=== PATIENT | female | born 1930 | race Caucasian/White ===

== ENCOUNTER → 2016-11-22 | Outpatient (CLI) | payer MEDICARE ==
--- NOTE | 2016-11-22 18:51 | Diagnostic Imaging Report ---
PROCEDURE: MRI lumbar spine. TECHNIQUE: Multiplanar, multisequence MRI of the lumbar spine was performed without contrast. INDICATION: Back pain, radiculopathy. COMPARISON: 05/03/2016. FINDINGS: Leftward convexity lumbar scoliotic curvature is not substantially changed from prior. Retrolisthesis of T12 on L1, L1 on L2 and L2 on L3, stable and grade 1. Anterolisthesis of L3 on L4 and L4 on L5, grade 1, are unchanged. The conus appears unremarkable. No marrow edema or acute fracture is evident. No intrathecal abnormality. No paravertebral mass, hemorrhage or fluid collection. T12-L1: Bulging desiccated disc material is present with focal left paramedian herniation indenting the left ventral thecal sac more pronounced than prior canal stenosis, however, mild and this did not obstruct the neural foramen or the lateral recesses. L1-L2: Desiccated bulging disc material with loss of disc height and endplate osteophytes persist. There is mild right greater than left facet arthrosis a disc bulge asymmetric to the right and facet hypertrophy results and a mild to moderate degree of right foraminal narrowing not substantially changed. No significant canal encroachment. L2-L3: Despite bulging disc material, endplate osteophytes and facet arthrosis a significant degree of canal foraminal or recess stenosis was not felt present. L3-L4: There is buckled thickened ligamenta flava and hypertrophic facet arthrosis. There is bulging disc material and endplate osteophytes the constellation of findings result in at least a moderate to severe degree of central canal stenosis, the sac assuming trefoil configuration. There is a mild to moderate biforaminal stenoses. L4-L5: Ligamentous thickening, facet arthrosis and endplate osteophytes accompany broad-based posterior left lateral disc bulge which severely stenosis the left neural foramen, this is unchanged. There is a moderate severity of central canal stenosis and mild right and mild to moderate right neural foraminal narrowing. Lateral recesses were not significantly stenosed. L5-S1: Left greater than right facet arthrosis and endplate osteophytes result in a moderate severity of left foraminal narrowing. The right neural foramen widely patent spinal canal widely patent. IMPRESSION: Very similar to prior with multilevel grade 1 degenerative listhesis unchanged no acute bony pathology leftward convexity scoliotic curvature, stable. 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 Findings are very similar to the prior. Dictated by: Dictated on workstation # [id number]
== END ==
LOC: RAD 07:50
PROVIDERS: ATTEND Family Medicine
DX: M51.27 Other intervertebral disc displacement, lumbosacral region (principal); M48.06 Spinal stenosis, lumbar region
CPT/HCPCS: 72148